=== PATIENT | male | born 1985 | race Caucasian/White ===

== ENCOUNTER 2019-10-31 04:43 | Inpatient (IN) | payer MEDICAID ==
[~2019-10-31] VITALS: Ht 167.6 cm; Wt 90.7 kg
[2019-10-31] MEDS ORDERED: MORPHINE SULFATE 4 MG/ML CPJ (NOT FOR IM USE) IV STA (04:51)
[2019-10-31] MEDS ORDERED: SODIUM CHLORIDE 0.9% 1,000 ML IV ONE (04:51)
[2019-10-31] MEDS ORDERED: ONDANSETRON HCL 4MG/2ML INJ IV STA (04:51)
[2019-10-31 05:20] LABS: BASOPHILS % 0.3 % (0.0-2.0); EOSINOPHILS % 0.6 % (0.0-5.0); HEMOGLOBIN. 13.8 g/dL (14.0-18.0); LYMPHOCYTES % 19.4 % (20.0-50.0); MEAN CORPUSCULAR HEMOGLOBIN 28.5 pg (28.0-32.0); MEAN CORPUSCULAR VOLUME 86.9 fL (80.0-94.0); MEAN PLATELET VOLUME 9.2 fl (7.4-10.4); MONOCYTES % 4.1 % (2.0-8.0); NEUTROPHILS % 75.6 % (40.0-76.0); PLATELET 214 x1000/uL (130-400); RED BLOOD CELL COUNT 4.83 mill/uL (4.7-6.1); RED CELL DISTRIBUTION WIDTH 14.2 % (11.6-14.6)
[2019-10-31 05:23] LABS: CHLORIDE 111 mEq/L (98-107)
[2019-10-31 05:30] LABS: PROTHROMBIN TIME 10.7 sec (9.6-11.0)
[2019-10-31] MEDS ORDERED: BACITRACIN ZINC OINT UDPKT TOP ONE (06:00)
[2019-10-31] MEDS ORDERED: IOHEXOL-300 100 ML BOTTLE ONE (06:43)
[2019-10-31] MEDS ORDERED: MORPHINE SULFATE 4 MG/ML CPJ (NOT FOR IM USE) IV ONE (08:00)
[2019-10-31] MEDS ORDERED: ONDANSETRON HCL 4MG/2ML INJ IV PRN (09:15)
[2019-10-31] MEDS ORDERED: FENTANYL CITRATE/PF 50MCG/ML 2ML VIAL IV ONE (09:30)
[2019-10-31] MEDS: KETOROLAC 30MG/ML VIAL IV PRN ×2 (12:11→20:00)
[2019-11-01 00:20] VITALS: BP 140/102
[2019-11-01] MEDS ORDERED: ZOLP5TAB2 PO (00:52)
[2019-11-01] MEDS ORDERED: LORA-249 PO (00:52)
[2019-11-01] MEDS ORDERED: ESCI10TA PO (00:52)
[2019-11-01] MEDS: KETOROLAC 30MG/ML VIAL IV PRN ×2 (01:48→11:46)
[2019-11-01 04:00] VITALS: BP 106/68
[2019-11-01] MEDS: HYDROCODONE/ACETAMINOPHEN 10/325MG TABLET PO PRN ×2 (07:52→15:46)
[2019-11-01 08:00] VITALS: BP 120/89
[2019-11-01 12:00] VITALS: BP 109/69
[2019-11-01] MEDS ORDERED: IBUP-2029 MT (15:30)
[2019-11-01] MEDS ORDERED: HYDR-4009 PO (15:30)
[2019-11-01 16:00] VITALS: BP 129/90
[2019-11-01 16:46] VITALS: BP 129/90
== END 2019-11-01 18:14 | disposition home or self-care (01) | DRG 135 ==
LOC: ER 04:43 → 5WST 19:53 → EDBEDREQ 20:04 → EDBEDREQTM 20:04 → ENRESERV 22:52 → 5WST 11-01 00:39
PROVIDERS: ADMIT Internal Medicine; ATTEND Internal Medicine
DX: S22.42XA Multiple fractures of ribs, left side, initial encounter for closed fracture (principal); R07.82 Intercostal pain; S02.609A Fracture of mandible, unspecified, initial encounter for closed fracture; E87.8 Other disorders of electrolyte and fluid balance, not elsewhere classified; J98.11 Atelectasis; V89.2XXA Person injured in unspecified motor-vehicle accident, traffic, initial encounter; Y92.410 Unspecified street and highway as the place of occurrence of the external cause; Y93.89 Activity, other specified; Y99.8 Other external cause status
CPT/HCPCS: 36415; 70486; 71045; 71270; 74178; 80053; 85025; 93005; 96374; 99285; J1885; J2270; J2405; J3010; J7030; Q9967